=== PATIENT | female | born 1990 | race Caucasian/White ===

== ENCOUNTER 2016-07-25 20:00 | Emergency (ER) | payer MEDICAID ==
[~2016-07-25] VITALS: Ht 162.6 cm; Wt 59.0 kg
[~2016-07-25 20:00] MED LIST: PRENTAB28 OR
[2016-07-25 20:10] VITALS: BP 110/61
== END 2016-07-25 23:21 | disposition left against medical advice (07) ==
LOC: ER 20:02
DX: O26.891 Other specified pregnancy related conditions, first trimester (principal); Z3A.01 Less than 8 weeks gestation of pregnancy; Z53.21 Procedure and treatment not carried out due to patient leaving prior to being seen by health care provider
CPT/HCPCS: 36415; 76801; 84702

== ENCOUNTER 2016-08-06 15:38 | Emergency (ER) | payer MEDICAID ==
[~2016-08-06] VITALS: Ht 162.6 cm; Wt 62.1 kg
[2016-08-06 17:15] LABS: Basophils # (auto) 0 uL; Basophils % (auto) 0.1 % (0.0-2.0); Eosinophils # (auto) 0 uL; Eosinophils % (auto) 0.4 % (0.0-7.0); Hematocrit 34.1 % (36.0-46.0); Hemoglobin 11.5 g/dL (12.2-16.2); Lymphocytes # (auto) 1.7 uL; Lymphocytes % (auto) 20.8 % (10.0-50.0); Mean Corpuscular Hemoglobin 29.9 pg (28.0-32.0); Mean Corpuscular Hgb Conc. 33.8 g/dL (32.0-36.0); Mean Corpuscular Volume 88.6 fL (80.0-100.0); Mean Platelet Volume 8.7 fL (7.4-10.4); Monocytes # (auto) 0.5 uL; Neutrophils % (auto) 72.7 % (37.0-80.0); Platelet Count (auto) 369 10^3/uL (140-450); Red Cell Distribution Width 14.4 % (11.6-16.0); White Blood Cell 8.2 10^3/uL (4.4-10.8)
[2016-08-06 17:18] LABS: Albumin 3.2 g/dL (3.4-5.0); BUN/Creatinine Ratio 11.7; Calcium 8.1 mg/dL (8.5-10.1)
[2016-08-06 17:21] LABS: Bilirubin, Total 0.2 mg/dL (0.2-1.0); Total Protein 6.5 g/dL (6.4-8.2)
[2016-08-06 18:08] VITALS: BP 109/71
[2016-08-06 19:05] LABS: Urine Bilirubin Negative (Negative); Urine Color Yellow (Yellow); Urine Glucose Normal (Normal); Urine Ketone Negative (Negative); Urine Mucus FEW (None Seen); Urine Nitrite Negative (Negative); Urine RBC 1 /hpf (0 - 4); Urine Squamous Epithelial Cell FEW /hpf (<5); Urine Urobilinogen Normal (Negative); Urine pH 6.5 (5.0-8.0)
[2016-08-06 19:06] LABS: Urine Blood 3+ /uL (Negative)
== END 2016-08-06 19:46 | disposition home or self-care (01) ==
LOC: ER 15:45
DX: O20.0 Threatened abortion (principal); Z3A.09 9 weeks gestation of pregnancy
CPT/HCPCS: 36415; 76801; 80053; 81001; 84702; 85025

== ENCOUNTER 2017-03-08 23:31 | Inpatient (IN) | payer MEDICAID ==
[~2017-03-08] VITALS: Ht 165.1 cm; Wt 72.6 kg
[2017-03-08] MEDS: LACTATED RINGER'S 1,000 ML IV SCH (23:41)
[2017-03-09] VITALS (16 sets, daily range): BP systolic 111–148; BP diastolic 68–95
[2017-03-09 00:14] LABS: Basophils # (auto) 0 uL; Eosinophils # (auto) 0 uL; Hemoglobin 8.7 g/dL (12.2-16.2); Lymphocytes # (auto) 1.9 uL; Monocytes # (auto) 0.5 uL; Neutrophils # (auto) 3.5 uL; Nucleated Red Blood Cells % 0.2 %
[2017-03-09 00:16] LABS: Basophils % (auto) 0.2 % (0.0-2.0); Eosinophils % (auto) 0.5 % (0.0-7.0); Hematocrit 26.6 % (36.0-46.0); Lymphocytes % (auto) 32.3 % (10.0-50.0); Mean Corpuscular Hemoglobin 26.5 pg (28.0-32.0); Mean Corpuscular Hgb Conc. 32.8 g/dL (32.0-36.0); Mean Corpuscular Volume 80.8 fL (80.0-100.0); Mean Platelet Volume 9.5 fL (6.9-10.8); Platelet Count (auto) 166 10^3/uL (140-450); Red Cell Distribution Width 15.6 % (11.8-14.3); White Blood Cell 5.9 10^3/uL (4.4-10.8)
[2017-03-09 00:28] LABS: INR 0.85 (0.9-1.15); Prothrombin Time 9.3 sec (9.37-12.3)
[2017-03-09 00:38] LABS: Albumin 2.4 g/dL (3.4-5.0); BUN/Creatinine Ratio 13.6; Bilirubin, Total 0.1 mg/dL (0.2-1.0); Calcium 8.3 mg/dL (8.5-10.1); Potassium 3.8 mmol/L (3.5-5.1); Total Protein 6.1 g/dL (6.4-8.2)
[2017-03-09] MEDS ORDERED: PREN-96 PO (02:56)
[2017-03-09] MEDS ORDERED: FERR-7 PO (02:56)
[2017-03-09 05:38] LABS: Urine Bilirubin Negative (Negative); Urine Blood Negative /uL (Negative); Urine Color Yellow (Yellow); Urine Glucose Normal (Normal); Urine Ketone Negative (Negative); Urine Mucus FEW (None Seen); Urine Nitrite Negative (Negative); Urine RBC None Seen /hpf (0 - 4); Urine Squamous Epithelial Cell FEW /hpf (<5); Urine Urobilinogen Normal (Negative); Urine pH 6.5 (5.0-8.0)
[2017-03-09] MEDS ORDERED: TETRACAINE 1% INJ 2 ML VIAL IJ ONE (06:51)
[2017-03-09] MEDS ORDERED: OXYTOCIN 10 UNIT/ML 10ML VIAL ONE (07:00)
[2017-03-09] MEDS ORDERED: ceFAZolin 1GM VL ONE (07:00)
[2017-03-09] MEDS ORDERED: MORPHINE SULF(PF) 0.5MG/ML 10ML VIAL ONE (07:00)
[2017-03-09] MEDS ORDERED: ONDANSETRON HCL 4 MG/2 ML VIAL ONE (07:00)
[2017-03-09] MEDS ORDERED: SODIUM CHLORIDE LOCK 20 ML ONE (07:00)
[2017-03-09] MEDS ORDERED: ePHEDrine SULFATE 50 MG/ML AMP ONE (07:00)
[2017-03-09] MEDS ORDERED: fentaNYL CITRATE 100 MCG/2 ML VL ONE (07:00)
[2017-03-09] MEDS ORDERED: MIDAZOLAM HCL 1MG/1ML-2 ML VIAL ONE (07:00)
[2017-03-09] MEDS ORDERED: LACT. RINGERS/OXYTOCIN 20UNITS 1,000 ML IV SCH (08:04)
[2017-03-09] MEDS ORDERED: HYDROmorphone HCL 2 MG/ML VL IV PRN ×2 (08:15→08:45)
[2017-03-09] MEDS ORDERED: MORPHINE SULF INJ 2 MG/ML SYRINGE 1ML IV PRN (08:15)
[2017-03-09] MEDS ORDERED: ceFAZolin 1GM/50ML D5W 50 ML IV SCH (08:15)
[2017-03-09] MEDS ORDERED: NALOXONE HCL 0.4 MG/ML VIAL IV PRN (08:45)
[2017-03-09] MEDS ORDERED: METOCLOPRAMIDE HCL 5MG/ml INJ 2ml VIAL IV ONE (08:45)
[2017-03-09] MEDS ORDERED: KETOROLAC TROMETH 30 MG/ML 1ML VIAL IV ONE (08:45)
[2017-03-09] MEDS ORDERED: diphenhdrAMINE HCL 50 MG/1 ML VL IV PRN (08:45)
[2017-03-09] MEDS: KETOROLAC TROMETH 30 MG/ML 1ML VIAL IV PRN (12:58)
[2017-03-09] MEDS: LACTATED RINGER'S 1,000 ML IV SCH ×3 (13:30→23:41)
[2017-03-09] MEDS: ceFAZolin 1GM/50ML D5W 50 ML IV SCH ×2 (15:10→23:16)
[2017-03-09 21:44] LABS: Basophils # (auto) 0 uL; Eosinophils # (auto) 0 uL; Eosinophils % (auto) 0.2 % (0.0-7.0); Hematocrit 30.3 % (36.0-46.0); Hemoglobin 10.1 g/dL (12.2-16.2); Lymphocytes # (auto) 1.4 uL; Lymphocytes % (auto) 17.6 % (10.0-50.0); Mean Corpuscular Hemoglobin 27.3 pg (28.0-32.0); Mean Corpuscular Hgb Conc. 33.3 g/dL (32.0-36.0); Mean Platelet Volume 9.2 fL (6.9-10.8); Monocytes # (auto) 0.6 uL; Monocytes % (auto) 7.1 % (0.0-12.0); Neutrophils % (auto) 75.1 % (37.0-80.0); Nucleated Red Blood Cells % 0.1 %; Platelet Count (auto) 135 10^3/uL (140-450)
[2017-03-10 03:00] VITALS: BP 117/71
[2017-03-10 04:00] VITALS: BP 124/78
[2017-03-10] MEDS: KETOROLAC TROMETH 30 MG/ML 1ML VIAL IV PRN (04:14)
[2017-03-10 06:32] LABS: Basophils # (auto) 0 uL; Eosinophils # (auto) 0 uL; Eosinophils % (auto) 0.1 % (0.0-7.0); Hematocrit 29.9 % (36.0-46.0); Hemoglobin 10.1 g/dL (12.2-16.2); Lymphocytes % (auto) 12.9 % (10.0-50.0); Mean Corpuscular Hemoglobin 27.5 pg (28.0-32.0); Mean Corpuscular Hgb Conc. 33.7 g/dL (32.0-36.0); Mean Corpuscular Volume 81.7 fL (80.0-100.0); Mean Platelet Volume 8.9 fL (6.9-10.8); Monocytes # (auto) 0.6 uL; Monocytes % (auto) 6.9 % (0.0-12.0); Neutrophils # (auto) 6.4 uL; Neutrophils % (auto) 80.1 % (37.0-80.0); Nucleated Red Blood Cells % 0.1 %; Platelet Count (auto) 149 10^3/uL (140-450); Red Cell Distribution Width 16.4 % (11.8-14.3)
[2017-03-10] MEDS: LACTATED RINGER'S 1,000 ML IV SCH (07:41)
[2017-03-10 08:00] VITALS: BP 126/68
[2017-03-10] MEDS ORDERED: ceFAZolin 1GM/50ML D5W 50 ML IV ONE ×2 (09:57→10:15)
[2017-03-10] MEDS: ceFAZolin 1GM/50ML D5W 50 ML IV SCH (10:00)
[2017-03-10] MEDS ORDERED: BISACODYL 10 MG RECT SUPP PR PRN (10:00)
[2017-03-10] MEDS: DOCUSATE CALCIUM 240 MG CAP PO SCH (10:16)
[2017-03-10] MEDS: DOCUSATE SOD 100 MG CAP PO SCH ×2 (10:17→21:47)
[2017-03-10] MEDS: HYDROcodone-ACET 5/325MG TAB PO PRN ×4 (10:17→21:54)
[2017-03-10] MEDS: FERROUS SULFATE 325 MG TAB PO SCH ×2 (10:17→21:47)
[2017-03-10 12:00] VITALS: BP 130/80
[2017-03-10] MEDS: SIMETHICONE 80 MG CHEWABLE TABLET PO SCH ×3 (12:00→21:47)
[2017-03-10] MEDS: IBUPROFEN 800 MG TAB PO PRN (14:00)
[2017-03-10 16:10] VITALS: BP 128/75
[2017-03-10 19:52] VITALS: BP 123/78
[2017-03-11 00:16] VITALS: BP 134/78
[2017-03-11] MEDS: IBUPROFEN 800 MG TAB PO PRN ×2 (03:00→16:58)
[2017-03-11 04:07] VITALS: BP 123/77
[2017-03-11] MEDS: SIMETHICONE 80 MG CHEWABLE TABLET PO SCH ×4 (06:22→21:57)
[2017-03-11 07:15] VITALS: BP 134/90
[2017-03-11] MEDS: HYDROcodone-ACET 5/325MG TAB PO PRN ×4 (07:23→21:57)
[2017-03-11] MEDS: FERROUS SULFATE 325 MG TAB PO SCH ×2 (10:00→21:45)
[2017-03-11] MEDS: DOCUSATE CALCIUM 240 MG CAP PO SCH (10:00)
[2017-03-11] MEDS: DOCUSATE SOD 100 MG CAP PO SCH ×2 (10:00→21:57)
[2017-03-11 12:30] VITALS: BP 129/84
[2017-03-11 16:07] VITALS: BP 122/66
[2017-03-11 19:49] VITALS: BP 134/89
[2017-03-12] VITALS: BP 122/76
[2017-03-12] MEDS: IBUPROFEN 800 MG TAB PO PRN
[2017-03-12 04:00] VITALS: BP 132/76
[2017-03-12] MEDS: HYDROcodone-ACET 5/325MG TAB PO PRN (04:00)
[2017-03-12] MEDS: SIMETHICONE 80 MG CHEWABLE TABLET PO SCH (05:54)
[2017-03-12 08:00] VITALS: BP 128/78
[2017-03-12] MEDS: DOCUSATE SOD 100 MG CAP PO SCH (10:00)
[2017-03-12] MEDS: FERROUS SULFATE 325 MG TAB PO SCH (10:00)
[2017-03-12] MEDS: DOCUSATE CALCIUM 240 MG CAP PO SCH (10:00)
== END 2017-03-12 10:20 | disposition home or self-care (01) | DRG 540 ==
LOC: LDRP 23:31
PROVIDERS: ADMIT Specialist; ATTEND Specialist
PROC: 30233N1 Transfusion of Nonautologous Red Blood Cells into Peripheral Vein, Percutaneous Approach (ICD-10-PCS; 2017-03-09)
PROC: 10D00Z1 Extraction of Products of Conception, Low, Open Approach (ICD-10-PCS; principal; 2017-03-09 07:19)
DX: O34.219 Maternal care for unspecified type scar from previous cesarean delivery (principal); D64.9 Anemia, unspecified; O99.02 Anemia complicating childbirth; Z37.0 Single live birth; Z3A.39 39 weeks gestation of pregnancy
CPT/HCPCS: 36415; 36430; 51702; 59025; 80053; 81001; 85025; 85610; 85730; 86850; 86900; 86901; 86920; 94762; 96361; 96365; 96366; 96374; J0690; J1885; J2250; J2405; J2590

== ENCOUNTER 2019-12-07 14:19 | Emergency (ER) | payer MEDICAID ==
[~2019-12-07 14:19] MED LIST changes: +FERR-7 PO; +PREN-96 PO; -PRENTAB28 OR
== END 2019-12-07 17:04 | disposition left against medical advice (07) ==
LOC: ER 14:19
DX: R06.02 Shortness of breath (principal); R05 Cough; Z53.21 Procedure and treatment not carried out due to patient leaving prior to being seen by health care provider

== ENCOUNTER → 2021-03-19 | Outpatient (CLI) | payer MEDICAID | END | disposition home or self-care (01) | LOC: LAB 16:19 | PROVIDERS: ATTEND Obstetrics & Gynecology | DX: N91.2 Amenorrhea, unspecified (principal) | CPT/HCPCS: 36415; 84144; 84702 ==

== ENCOUNTER → 2021-10-14 | Outpatient (CLI) | payer MEDICAID ==
[2021-10-14 10:13] LABS: Basophils # (auto) 0 10 ^3/uL (0-0.2); Basophils % (auto) 0.2 % (0.0-2.0); Eosinophils # (auto) 0 10 ^3/uL (0-0.8); Eosinophils % (auto) 0.7 % (0.0-7.0); Hematocrit 29.2 % (36.0-46.0); Hemoglobin 9.9 g/dL (12.2-16.2); Lymphocytes # (auto) 1.7 10 ^3/uL (0.4-5.4); Lymphocytes % (auto) 24.5 % (10.0-50.0); Mean Corpuscular Hemoglobin 28.3 pg (28.0-32.0); Mean Corpuscular Volume 83.2 fL (80.0-100.0); Monocytes # (auto) 0.5 10 ^3/uL (0-1.3); Monocytes % (auto) 7.8 % (0.0-12.0); Neutrophils # (auto) 4.6 10 ^3/uL (1.6-8.6); Neutrophils % (auto) 66.8 % (37.0-80.0); Nucleated Red Blood Cells % 0.1 %; Red Blood Cells 3.51 10^6/uL (4.0-5.20); Red Cell Distribution Width 14.4 % (11.8-14.3); White Blood Cell 6.9 10^3/uL (4.4-10.8)
[2021-10-14 13:22] LABS: Urine Bacteria FEW /hpf (None Seen); Urine Blood 2+ /uL (Negative); Urine Hyaline Cast FEW /lpf (0 - 2); Urine Mucus FEW (None Seen); Urine Specific Gravity 1.023 (1.001-1.035); Urine WBC 7 /hpf (0 - 5)
== END | disposition home or self-care (01) ==
LOC: LAB 09:34
PROVIDERS: ATTEND Obstetrics & Gynecology
DX: R30.0 Dysuria (principal)
CPT/HCPCS: 36415; 81001; 82951; 83036; 85025; 87086; 87088; 87186

== ENCOUNTER 2021-11-03 08:08 | Observation (INO) | payer MEDICAID ==
[2021-11-03] MEDS ORDERED: PREN1TAB71 OR (16:44)
== END 2021-11-03 17:00 | disposition home or self-care (01) ==
LOC: LDRP 15:12
PROVIDERS: ADMIT Obstetrics & Gynecology Obstetrics; ATTEND Obstetrics & Gynecology Obstetrics
DX: O40.3XX0 Polyhydramnios, third trimester, not applicable or unspecified (principal); Z3A.36 36 weeks gestation of pregnancy
CPT/HCPCS: 59025; 76818; 94760; G0378

== ENCOUNTER → 2021-11-05 | Outpatient (CLI) | payer MEDICAID ==
[~2021-11-05] MED LIST changes: +PREN1TAB71 OR
[2021-11-05 10:43] LABS: Basophils # (auto) 0 10 ^3/uL (0-0.2); Basophils % (auto) 0.1 % (0.0-2.0); Eosinophils # (auto) 0 10 ^3/uL (0-0.8); Eosinophils % (auto) 0.7 % (0.0-7.0); Hematocrit 30.1 % (36.0-46.0); Hemoglobin 9.7 g/dL (12.2-16.2); Lymphocytes # (auto) 1.6 10 ^3/uL (0.4-5.4); Mean Corpuscular Hemoglobin 26.2 pg (28.0-32.0); Mean Corpuscular Hgb Conc. 32.1 g/dL (32.0-36.0); Mean Corpuscular Volume 81.6 fL (80.0-100.0); Monocytes # (auto) 0.5 10 ^3/uL (0-1.3); Monocytes % (auto) 8.1 % (0.0-12.0); Neutrophils # (auto) 4.6 10 ^3/uL (1.6-8.6); Neutrophils % (auto) 68.1 % (37.0-80.0); Red Blood Cells 3.69 10^6/uL (4.0-5.20); White Blood Cell 6.7 10^3/uL (4.4-10.8)
[2021-11-06 08:06] LABS: RPR Non Reactive (Non Reactive)
== END | disposition home or self-care (01) ==
LOC: LAB 09:44
PROVIDERS: ATTEND Obstetrics & Gynecology
DX: Z34.80 Encounter for supervision of other normal pregnancy, unspecified trimester (principal); Z3A.00 Weeks of gestation of pregnancy not specified
CPT/HCPCS: 36415; 84112; 85025; 86592

== ENCOUNTER 2021-11-06 08:31 | Inpatient (IN) | payer MEDICAID ==
[~2021-11-06] VITALS: Ht 162.6 cm; Wt 89.8 kg
[2021-11-17] VITALS (11 sets, daily range): BP systolic 116–135; BP diastolic 60–83
[2021-11-17] MEDS ORDERED: LACTATED RINGER'S 1,000 ML IV SCH (17:00)
[2021-11-17] MEDS ORDERED: LACTATED RINGER'S 1,000 ML IV ONE ×2 (17:00→17:45)
[2021-11-17] MEDS ORDERED: ceFAZolin 1GM/50ML 50 ML IV ONE ×2 (17:00→20:15)
[2021-11-17 17:36] LABS: Basophils # (auto) 0 10 ^3/uL (0-0.2); Monocytes # (auto) 0.7 10 ^3/uL (0-1.3)
[2021-11-17 17:40] LABS: Basophils % (auto) 0.2 % (0.0-2.0); Eosinophils # (auto) 0 10 ^3/uL (0-0.8); Eosinophils % (auto) 0.5 % (0.0-7.0); Hematocrit 33.8 % (36.0-46.0); Hemoglobin 11.1 g/dL (12.2-16.2); Lymphocytes # (auto) 2.6 10 ^3/uL (0.4-5.4); Lymphocytes % (auto) 27.6 % (10.0-50.0); Mean Corpuscular Hemoglobin 26.4 pg (28.0-32.0); Monocytes % (auto) 7.2 % (0.0-12.0); Neutrophils % (auto) 64.5 % (37.0-80.0); Nucleated Red Blood Cells % 0.2 %; Red Blood Cells 4.22 10^6/uL (4.0-5.20); Red Cell Distribution Width 15.1 % (11.8-14.3); White Blood Cell 9.2 10^3/uL (4.4-10.8)
[2021-11-17 17:41] LABS: Urine Bacteria FEW /hpf (None Seen); Urine Blood Negative /uL (Negative); Urine Mucus FEW (None Seen); Urine Specific Gravity 1.014 (1.001-1.035); Urine WBC 3 /hpf (0 - 5)
[2021-11-17 17:49] LABS: INR 1.38 (0.9-1.15); Partial Thromboplastin Time 23.9 sec (23.6-33.0)
[2021-11-17 17:55] LABS: Albumin 2.6 g/dL (3.4-5.0); Potassium 4.1 mmol/L (3.5-5.1)
[2021-11-17 17:55] LABS: Alcohol, Urine < 3.0 mg/dL (0-10); Amphetamine Screen, Urine NEGATIVE (NEGATIVE); Barbiturate Scree,Urine NEGATIVE (NEGATIVE); Benzodiazephine Screen, Urine NEGATIVE (NEGATIVE); Cannabinoid Screen, Urine NEGATIVE (NEGATIVE); Cocaine Screen, Urine NEGATIVE (NEGATIVE); Opiate Scree,Urine NEGATIVE (NEGATIVE); Phencyclidine Screen, Urine NEGATIVE (NEGATIVE)
[2021-11-17 17:56] LABS: BUN/Creatinine Ratio 13.6
[2021-11-17 17:58] LABS: Bilirubin, Total 0.2 mg/dL (0.2-1.0); Total Protein 6.7 g/dL (6.4-8.2)
[2021-11-17] MEDS ORDERED: MORPHINE SULF PF 5 MG/10 ML VIAL ONE (18:42)
[2021-11-17] MEDS ORDERED: TETRACAINE 1% INJ 2 ML VIAL IJ ONE (18:44)
[2021-11-17] MEDS ORDERED: TRANEXAMIC ACID 10 ML ONE (18:57)
[2021-11-17] MEDS ORDERED: ePHEDrine SULFATE 50 MG/ML AMP ONE (19:44)
[2021-11-17] MEDS ORDERED: oxyTOCIN 10 UNIT/ML 10ML VIAL ONE (20:08)
[2021-11-17] MEDS ORDERED: ONDANSETRON HCL 4 MG/2 ML VIAL IV PRN ×2 (20:15→20:30)
[2021-11-17] MEDS ORDERED: SIMETHICONE 80 MG CHEWABLE TABLET PO PRN (20:15)
[2021-11-17] MEDS ORDERED: ePHEDrine SULFATE 50 MG/ML AMP IV PRN (20:15)
[2021-11-17] MEDS ORDERED: KETOROLAC TROMETH 30 MG/ML 1ML VIAL IV PRN ×2 (20:15→20:30)
[2021-11-17] MEDS ORDERED: GUM (CHEWING) 1 GUM CHEW CHEW ONE (20:15)
[2021-11-17] MEDS ORDERED: diphenhdrAMINE HCL 50 MG/1 ML VL IV PRN (20:30)
[2021-11-17] MEDS ORDERED: NALBUPHINE HCL 10 MG/1ml INJECTION SUBCUT ONE (20:30)
[2021-11-17] MEDS ORDERED: HYDROmorphone HCL 2 MG/ML VL/or syr IV PRN (20:30)
[2021-11-17] MEDS ORDERED: NALOXONE HCL 0.4 MG/ML VIAL IV PRN (20:30)
[2021-11-17] MEDS ORDERED: DexAMETHasone SOD PHOS 10MG/1ML VIAL INJ IV PRN (20:30)
[2021-11-17] MEDS: DOCUSATE SOD 100 MG CAP PO SCH (22:20)
[2021-11-18] VITALS (15 sets, daily range): BP systolic 112–137; BP diastolic 57–90
[2021-11-18 00:15] LABS: INR 0.93 (0.9-1.15); Partial Thromboplastin Time 25.8 sec (23.6-33.0)
[2021-11-18] MEDS ORDERED: IBU600T PO (05:47)
[2021-11-18] MEDS ORDERED: DOCU100C10 PO (05:47)
[2021-11-18] MEDS ORDERED: HYDR-4902 PO (05:47)
[2021-11-18] MEDS ORDERED: HYDROcodone-ACET 5/325MG TAB PO PRN ×2 (06:00)
[2021-11-18 06:29] LABS: Basophils # (auto) 0 10 ^3/uL (0-0.2); Eosinophils # (auto) 0 10 ^3/uL (0-0.8); Lymphocytes # (auto) 1.7 10 ^3/uL (0.4-5.4); Nucleated Red Blood Cells % 0.1 %
[2021-11-18 06:30] LABS: Basophils % (auto) 0.1 % (0.0-2.0); Eosinophils % (auto) 0.6 % (0.0-7.0); Hematocrit 26.1 % (36.0-46.0); Hemoglobin 8.9 g/dL (12.2-16.2); Lymphocytes % (auto) 20.9 % (10.0-50.0); Mean Corpuscular Hemoglobin 27.2 pg (28.0-32.0); Mean Corpuscular Hgb Conc. 34.2 g/dL (32.0-36.0); Mean Corpuscular Volume 79.6 fL (80.0-100.0); Monocytes # (auto) 0.6 10 ^3/uL (0-1.3); Monocytes % (auto) 7.7 % (0.0-12.0); Neutrophils # (auto) 5.8 10 ^3/uL (1.6-8.6); Neutrophils % (auto) 70.7 % (37.0-80.0); Red Blood Cells 3.28 10^6/uL (4.0-5.20); White Blood Cell 8.1 10^3/uL (4.4-10.8)
[2021-11-18] MEDS ORDERED: ACETAMINOPHEN IV 1000 MG/100ML (10MG/ML) IV ONE (12:15)
[2021-11-18] MEDS: IBUPROFEN 600 MG TAB PO SCH ×2 (17:51→23:31)
[2021-11-18] MEDS: DOCUSATE SOD 100 MG CAP PO SCH (23:31)
[2021-11-19 03:00] VITALS: BP 112/68
[2021-11-19] MEDS: IBUPROFEN 600 MG TAB PO SCH ×2 (04:00→13:06)
[2021-11-19 07:06] LABS: RPR Non Reactive (Non Reactive)
[2021-11-19 07:30] VITALS: BP 129/74
[2021-11-19 11:09] VITALS: BP 122/78
== END 2021-11-19 14:06 | disposition home or self-care (01) | DRG 540 ==
LOC: UNDOADMOB 11-17 15:48 → LDRP 11-17 15:48 → OBSVTOIN 11-17 17:00 → LDRP 11-17 17:27
PROVIDERS: ADMIT Obstetrics & Gynecology; ATTEND Obstetrics & Gynecology
PROC: 10D00Z1 Extraction of Products of Conception, Low, Open Approach (ICD-10-PCS; principal; 2021-11-17 18:52)
DX: O69.81X0 Labor and delivery complicated by cord around neck, without compression, not applicable or unspecified (principal); O36.4XX0 Maternal care for intrauterine death, not applicable or unspecified; O40.3XX0 Polyhydramnios, third trimester, not applicable or unspecified; O34.211 Maternal care for low transverse scar from previous cesarean delivery; Z37.1 Single stillbirth; O77.0 Labor and delivery complicated by meconium in amniotic fluid; Z20.822 Contact with and (suspected) exposure to COVID-19; O99.02 Anemia complicating childbirth; Z3A.39 39 weeks gestation of pregnancy
CPT/HCPCS: 36415; 76815; 80053; 80307; 81001; 81002; 85025; 85610; 85730; 86592; 86850; 86900; 86901; 94760; 94762; 96360; 96361; 96365; 96366; G0378; J0131; J0690; J1885; J2590